=== PATIENT | male | born 1935 | race Caucasian/White ===

== ENCOUNTER 2022-05-23 05:09 | Outpatient (REF) | payer MEDICARE, BC, SELFPAY ==
[2022-05-23 06:31] LABS: Alanine Aminotransferase 6 U/L (0-40); Albumin Level 3.6 g/dL (3.5-5.0); Alkaline Phosphatase 86 U/L (39-117); Anion Gap 15 (12-20); Aspartate Amino Transferase 12 U/L (5-37); Bilirubin Total 0.4 mg/dL (0.0-1.0); Blood Urea Nitrogen 17 mg/dL (9-16); Calcium 9.4 mg/dL (8.4-10.2); Carbon Dioxide 23 mmol/L (22-29); Chloride 107 mmol/L (96-108); Cholesterol 144 mg/dL; Estimated Glomerular Filt Rate > 60; Glucose Fasting 115 mg/dL (60-99); HDL Cholesterol 45 mg/dL; LDL Cholesterol Calculated 86 mg/dl; Potassium 3.9 mmol/L (3.3-5.1); Sodium 141 mmol/L (135-145); Total Protein 6.3 g/dL (6.5-8.0); Triglycerides 68 mg/dL
[2022-05-23 06:36] LABS: Hematocrit 39.2 % (42.0-52.0); Mean Corpuscular HGB Conc 33.2 g/dl (31.0-36.0); Mean Corpuscular Hemoglobin 31.3 pg (27.0-33.0); Mean Corpuscular Volume 94.2 fL (80.0-98.0); Mean Platelet Volume 10.6 fL (9.4-12.4); Platelet Count 164 X10*3/uL (160-400); Red Blood Count 4.16 X10*6/uL (4.60-5.80); Red Cell Distribution Width 12.7 % (11.0-16.0); White Blood Count 6.7 X10*3/uL (4.8-10.8)
[2022-05-23 06:53] LABS: Thyroid Stimulating Hormone 1.14 uIU/mL (0.32-4.0); Vitamin D 25-OH Total 22.1 ng/mL (>30)
[2022-05-23 07:28] LABS: Estimated Average Glucose 117 mg/dL; Hemoglobin A1c % 5.7 %
[2022-05-26 17:11] LABS: TS Negative Control Passed; TS Panel A 0; TS Panel B 0; TS Positive Control Passed; TSpotTB Negative (Negative)
== END 2022-05-23 05:10 | disposition home or self-care (01) ==
LOC: HO.HSH3W 05:09
PROVIDERS: Visit Provider Internal Medicine Interventional Cardiology
DX: Z11.1 Encounter for screening for respiratory tuberculosis (principal); E11.9 Type 2 diabetes mellitus without complications; I10 Essential (primary) hypertension; F03.90 Unspecified dementia, unspecified severity, without behavioral disturbance, psychotic disturbance, mood disturbance, and anxiety
CPT/HCPCS: 36415; 80053; 80061; 82306; 83036; 84443; 85027; 86481

== ENCOUNTER 2023-01-21 06:10 | Outpatient (REF) | payer MEDICARE, BC, SELFPAY ==
[2023-01-21 06:13] LABS: MANUAL DIFF FLAG NO
[2023-01-21 06:31] LABS: Basophils Absolute Auto 0.1 X10*3/uL (0.0-0.2); Basophils Percent Auto 0.8 % (0-2); Eosinophils Absolute Auto 0.3 X10*3/uL (0.0-0.4); Eosinophils Percent Auto 4.6 % (0-4); Hematocrit 39.9 % (42.0-52.0); Hemoglobin 13.3 g/dl (14.0-18.0); Imm Gran Abs Auto 0.04 X10*3/uL (0.00-0.03); Imm Gran Pct Auto 0.6 % (0.0-0.4); Lymphocytes Absolute Auto 2.2 X10*3/uL (1.2-4.9); Lymphocytes Percent Auto 35.1 % (20-40); Mean Corpuscular HGB Conc 33.3 g/dl (31.0-36.0); Mean Corpuscular Hemoglobin 30.8 pg (27.0-33.0); Mean Corpuscular Volume 92.4 fL (80.0-98.0); Mean Platelet Volume 10.6 fL (9.4-12.4); Monocytes Absolute Auto 0.6 X10*3/uL (0.1-1.2); Monocytes Percent Auto 9.3 % (2-11); Neutrophils Absolute Auto 3.1 x10*3/uL (2.0-8.3); Neutrophils Percent Auto 49.6 % (45-73); Platelet Count 151 X10*3/uL (160-400); Red Blood Count 4.32 X10*6/uL (4.60-5.80); Red Cell Distribution Width 13.2 % (11.0-16.0); White Blood Count 6.3 X10*3/uL (4.8-10.8)
[2023-01-21 06:51] LABS: Alanine Aminotransferase 8 U/L (0-40); Albumin Level 3.3 g/dL (3.5-5.0); Alkaline Phosphatase 65 U/L (39-117); Anion Gap 9 (12-20); Aspartate Amino Transferase 13 U/L (5-37); Bilirubin Total 0.8 mg/dL (0.0-1.0); Blood Urea Nitrogen 15 mg/dL (9-16); Calcium 9.2 mg/dL (8.4-10.2); Carbon Dioxide 25 mmol/L (22-29); Chloride 109 mmol/L (96-108); Estimated Glomerular Filt Rate > 60; Glucose Fasting 96 mg/dL (60-99); Potassium 3.8 mmol/L (3.3-5.1); Sodium 139 mmol/L (135-145); Total Protein 5.6 g/dL (6.5-8.0)
== END 2023-01-21 06:11 | disposition home or self-care (01) ==
LOC: HO.HSH3W 06:10
PROVIDERS: Visit Provider Nurse Practitioner
DX: I10 Essential (primary) hypertension (principal); D64.9 Anemia, unspecified
CPT/HCPCS: 36415; 80053; 85025

== ENCOUNTER 2023-06-08 17:40 | Outpatient (REF) | payer MEDICARE, BC, SELFPAY | END 2023-06-08 17:41 | disposition home or self-care (01) | LOC: HO.HSH2W 17:40 | PROVIDERS: Visit Provider Nurse Practitioner | DX: L03.90 Cellulitis, unspecified (principal) | CPT/HCPCS: 87070; 87147; 87205 ==

== ENCOUNTER 2023-09-10 05:38 | Outpatient (REF) | payer MEDICARE, BC, SELFPAY ==
[2023-09-10 06:48] LABS: MANUAL DIFF FLAG NO
[2023-09-10 06:53] LABS: Basophils Absolute Auto 0.1 X10*3/uL (0.0-0.2); Basophils Percent Auto 0.8 % (0-2); Eosinophils Absolute Auto 0.4 X10*3/uL (0.0-0.4); Eosinophils Percent Auto 5.7 % (0-4); Hematocrit 40.2 % (42.0-52.0); Hemoglobin 13.7 g/dl (14.0-18.0); Imm Gran Abs Auto 0.07 X10*3/uL (0.00-0.03); Imm Gran Pct Auto 1.1 % (0.0-0.4); Lymphocytes Percent Auto 29.4 % (20-40); Mean Corpuscular HGB Conc 34.1 g/dl (31.0-36.0); Mean Corpuscular Hemoglobin 31.4 pg (27.0-33.0); Mean Corpuscular Volume 92.2 fL (80.0-98.0); Mean Platelet Volume 10.1 fL (9.4-12.4); Monocytes Absolute Auto 0.6 X10*3/uL (0.1-1.2); Neutrophils Absolute Auto 3.6 x10*3/uL (2.0-8.3); Platelet Count 156 X10*3/uL (160-400); Red Blood Count 4.36 X10*6/uL (4.60-5.80); Red Cell Distribution Width 13.3 % (11.0-16.0); White Blood Count 6.6 X10*3/uL (4.8-10.8)
[2023-09-10 07:19] LABS: Alanine Aminotransferase 8 U/L (0-40); Albumin Level 3.3 g/dL (3.5-5.0); Alkaline Phosphatase 66 U/L (39-117); Anion Gap 12 (12-20); Aspartate Amino Transferase 13 U/L (5-37); Bilirubin Total 0.5 mg/dL (0.0-1.0); Blood Urea Nitrogen 15 mg/dL (9-16); Calcium 9.2 mg/dL (8.4-10.2); Carbon Dioxide 24 mmol/L (22-29); Chloride 108 mmol/L (96-108); Cholesterol 116 mg/dL (<200); Estimated Average Glucose 131 mg/dL; Estimated Glomerular Filt Rate > 60; Glucose Fasting 108 mg/dL (60-99); HDL Cholesterol 37 mg/dL (>40); Hemoglobin A1c % 6.2 % (<6.0); LDL Cholesterol Calculated 67 mg/dL (<100); Potassium 3.8 mmol/L (3.3-5.1); Sodium 140 mmol/L (135-145); Triglycerides 62 mg/dL (<150)
== END 2023-09-10 05:39 | disposition home or self-care (01) ==
LOC: HO.HSH3W 05:38
PROVIDERS: Visit Provider Internal Medicine Interventional Cardiology
DX: E11.9 Type 2 diabetes mellitus without complications (principal); E78.5 Hyperlipidemia, unspecified; Z86.718 Personal history of other venous thrombosis and embolism
CPT/HCPCS: 36415; 80053; 80061; 83036; 85025

== ENCOUNTER 2024-09-13 06:41 | Outpatient (REF) | payer MEDICARE, BC, SELFPAY ==
[2024-09-13 07:44] LABS: Alanine Aminotransferase 9 U/L (0-40); Albumin Level 3.3 g/dL (3.5-5.0); Alkaline Phosphatase 72 U/L (39-117); Anion Gap 13 (12-20); Aspartate Amino Transferase 21 U/L (5-37); Bilirubin Total 0.6 mg/dL (0.0-1.0); Blood Urea Nitrogen 16 mg/dL (9-16); Calcium 8.5 mg/dL (8.4-10.2); Carbon Dioxide 20 mmol/L (22-29); Chloride 110 mmol/L (96-108); Estimated Glomerular Filt Rate > 60; Glucose Random 128 mg/dL (60-115); Potassium 4.1 mmol/L (3.3-5.1); Sodium 139 mmol/L (135-145); Total Protein 6.1 g/dL (6.5-8.0)
== END 2024-09-13 06:42 | disposition home or self-care (01) ==
LOC: HO.HSH3W 06:41
PROVIDERS: Visit Provider Nurse Practitioner
DX: Z20.822 Contact with and (suspected) exposure to COVID-19 (principal)
CPT/HCPCS: 36415; 80053

== ENCOUNTER 2024-09-22 06:24 | Outpatient (REF) | payer MEDICARE, BC, SELFPAY ==
--- OUTSIDE RECORDS SUMMARY | 2024-09-22 06:28 | XMS_ITS | Clinical Summary ---
Author Organization Unknown Care Team Providers Care Tank Driver Name Role Phone BASSAM GALARZA, LUCA Unavailable Unavailable MK RN, ELIZABETH Unavailable Unavailable SPAFFORD OT, RAMIREZ Unavailable Unavailable DEYSI PT, IGNACIO Unavailable Unavailable PEDRO HOOF TRIMMER, FAVIAN Unavailable Unavailable SHUKLA HOOF TRIMMER, CHI Unavailable Unavailable MBURU SHELL MOLD BONDER, AVI Unavailable Unavailable CLOONAN SHELL MOLD BONDER, EDWARD Unavailable Unavailable CONDINO MEGHA/MOCK, TIAGO Unavailable Unav ailable Payers Payer Name Policy Type Policy Number Effective Date Expira tion Date MEDICARE.[facility] [id number] Problems Condition Name Condition Details Condition Category Status Onset Date Resolution Date Last Treatment Date Treating Clinician Comments ALZHEIMER'S DISEASE, UNSPECIFIED Active 03-26 00:00: 00 DEM IN OTH DIS CLASSD ELSWHR,UNSP SEV,W/O BEH/PSYCH/MO OD/ANX Active 03-26 00:00: 00 TYPE 2 DIABETES MELLITUS WITHOUT COMPLICATION S Active 03-26 00:00: 00 ESSENTIAL (PRIMARY) HYPERTENSION Active 03-26 00:00: 00 OTH SYMPTOMS AND SIGNS INVOLVING THE MUSCULOSKELE VIRGILIO SYSTEM Active 03-26 00:00: 00 OTHER ABNORMALITIE S OF GAIT AND MOBILITY Active 03-26 00:00: 00 HYPERLIPIDEM IA, UNSPECIFIED Active 03-26 00:00: 00 PERSONAL HISTORY OF PULMONARY EMBOLISM Active 03-26 00:00: 00 PERSONAL HISTORY OF OTHER VENOUS THROMBOSIS AND EMBOLISM Active 03-26 00:00: 00 [facility] (CURRENT) USE OF ANTICOAGULAN TS Active 03-26 00:00: 00 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 Ordering Clinician Indication Dosage Frequency Signature (SIG) Comments Components metformin 500 mg tablet 2019-09 00:00: 00 09-21 23:59 :00 No [id number] Per instruc tions TWO TIMES A DAY Per instructio ns TWO TIMES A DAY (route: oral) Med Classific ation: Endocrine memantine 5 mg tablet 2019-09 00:00: 00 Yes [id number] DEMENTIA Per instruc tions TWO TIMES A DAY Per instructio ns TWO TIMES A DAY (route: oral) Med Classific ation: Cognitive Disorder Therapy donepezil 5 mg tablet 2019-09 00:00: 00 12-21 23:59 :00 No [id number] 1 tablet DAILY 1 tablet DAILY (route: oral) Med Classific ation: Cognitive Disorder Therapy quetiapine 50 mg tablet 2019-09 00:00: 00 02-06 23:59 :00 No [id number] Per instruc tions TWO TIMES A DAY Per instructio ns TWO TIMES A DAY (route: oral) Med Classific ation: Central Nervous System Agents lisinopril 20 mg-hydrochl orothiazide 12.5 mg tablet 2019-09 00:00: 00 09-21 23:59 :00 No [id number] Per instruc tions TWO TIMES A DAY Per instructio ns TWO TIMES A DAY (route: oral) Med Classific ation: Cardiovas cular Therapy Agents pravastatin 40 mg tablet 2019-09 00:00: 00 04-18 00:00 :00 No [id number] 1 tablet DAILY 1 tablet DAILY (route: oral) Med Classific ation: Cardiovas cular Therapy Agents acetaminoph en 325 mg tablet 04-18 00:00: 00 Yes [id number] PAIN 2 tablet NEEDED 2 tablet NEEDED (route: oral) Med Classific ation: Analgesic , Anti-infl ammatory or Antipyret ic Colace 100 mg capsule 04-18 00:00: 00 Yes [id number] CONSTIPATIO N 1 capsule 2 TIMES DAILY 1 capsule 2 TIMES DAILY (route: oral) Med Classific ation: Gastroint estinal Therapy Agents Eliquis 5 mg tablet 04-18 00:00: 00 Yes [id number] ANTICOAGULA TION 1 tablet 2 TIMES DAILY 1 tablet 2 TIMES DAILY (route: oral) Med Classific ation: Hematolog ical Agents Multivitami n 50 Plus tablet 09-22 00:00: 00 Yes [id number] SUPPLEMENT 1 tablet DAILY 1 tablet DAILY (route: oral) Med Classific ation: Electroly te Balance-N utritiona l Products pantoprazol e 40 mg tablet,rex yed release 09-22 00:00: 00 10-05 23:59 :00 No [id number] 1 tablet DAILY 1 tablet DAILY (route: oral) Med Classific ation: Gastroint estinal Therapy Agents Remeron 15 mg tablet 09-22 00:00: 00 10-05 23:59 :00 No [id number] 7.5 tablet DAILY 7.5 tablet DAILY (route: oral) Med Classific ation: Central Nervous System Agents Senna Concentrate 8.6 mg tablet 04-18 00:00: 00 Yes [id number] CONSTIPATIO N 1 tablet NEEDED 1 tablet NEEDED (route: oral) Med Classific ation: Gastroint estinal Therapy Agents gabapentin 100 mg capsule 04-18 00:00: 00 Yes [id number] PAIN 1 capsule 2 TIMES DAILY 1 capsule 2 TIMES DAILY (route: oral) Med Classific ation: Central Nervous System Agents lisinopril 20 mg-hydrochl orothiazide 12.5 mg tablet 12-23 00:00: 00 04-18 00:00 :00 No [id number] 1 tablet DAILY 1 tablet DAILY (route: oral) Med Classific ation: Cardiovas cular Therapy Agents metformin 500 mg tablet 12-23 00:00: 00 Yes [id number] DIABETES 1 tablet 2 TIMES DAILY 1 tablet 2 TIMES DAILY (route: oral) Med Classific ation: Endocrine pantoprazol e 20 mg tablet,rex yed release 4-10 00:00: 00 Yes [id number] GERD 1 tablet DAILY 1 tablet DAILY (route: oral) Med Classific ation: Gastroint estinal Therapy Agents quetiapine 25 mg tablet 5- 00:00: 00 04-18 23:59 :00 No [id number] TREAT LABILE MOODS Per instruc tions 2 TIMES DAILY Per instructio ns 2 TIMES DAILY (route: oral) Med Classific ation: Central Nervous System Agents donepezil 5 mg tablet 04-18 00:00: 00 Yes [id number] DEMENTIA 1 tablet DAILY 1 tablet DAILY (route: oral) Med Classific ation: Cognitive Disorder Therapy Multivitami n 50 Plus tablet 04-18 00:00: 00 Yes [id number] SUPPLEMENT 1 tablet DAILY 1 tablet DAILY (route: oral) Med Classific ation: Electroly te Balance-N utritiona l Products quetiapine 25 mg tablet 04-18 00:00: 00 Yes [id number] MOOD DISORDER 0.5 tablet NEEDED 0.5 tablet NEEDED (route: oral) Med Classific ation: Central Nervous System Agents quetiapine 50 mg tablet 04-18 00:00: 00 Yes [id number] MOOD DISORDE 1 tablet 2 TIMES DAILY 1 tablet 2 TIMES DAILY (route: oral) Med Classific ation: Central Nervous System Agents cephalexin 500 mg capsule 05-04 00:00: 00 05-11 23:59 :00 No [id number] ANTIBIOTIC 1 capsule 3 TIMES DAILY 1 capsule 3 TIMES DAILY (route: oral) Med Classific ation: Anti-Infe ctive Agents polyethylen e glycol 3350 17 gram oral powder packet 05-08 00:00: 00 Yes [id number] CONSTIPATIO N 17 packet DAILY 17 packet DAILY (route: oral) Med Classific ation: Gastroint estinal Therapy Agents Immunizations Ordered Immunization Name Filled Immunization Name Date Status Comments Refusal Reason DOSE #2, COVID-19 VACCINE 2020-12-10 00:00:00 DOSE #1, COVID-19 VACCINE 2020-11-12 00:00:00 Vital Signs Vital Name Observation Time Observation Value Commen ts Temperature 2021-05-31 11:27:00.000 97 [degF] Temperature 2021-05-30 17:09:46.000 97.7 [degF] Temperature 2021-05-27 16:36:51.000 97.9 [degF] Temperature 2021-05-27 12:38:00.000 98 [degF] Temperature 2021-05-24 15:43:00.000 97.2 [degF] Temperature 2021-05-23 18:22:12.000 97.3 [degF] Temperature 2021-05-23 11:40:00.000 97.6 [degF] Temperature 2021-05-21 17:06:27.000 97.5 [degF] Temperature 2021-05-21 14:32:00.000 97.4 [degF] Temperature 2021-05-17 08:38:00.000 97.2 [degF] Temperature 2021-05-16 15:26:53.000 97.1 [degF] Temperature 2021-05-16 13:55:00.000 97.3 [degF] Temperature 2021-05-14 11:49:00.000 96.9 [degF] Temperature 2021-05-13 17:10:11.000 97.9 [degF] Temperature 2021-05-09 16:44:49.000 97.6 [degF] Temperature 2021-05-08 14:44:00.000 97.8 [degF] Temperature 2021-05-08 12:12:14.000 97.7 [degF] Temperature 2021-05-07 14:31:00.000 97.2 [degF] Temperature 2021-05-06 16:37:23.000 97.5 [degF] Temperature 2021-05-06 12:16:00.000 97.1 [degF] Temperature 2021-05-02 15:24:06.000 97.7 [degF] Temperature 2021-05-01 12:48:00.000 98 [degF] Temperature 2021-04-30 11:13:00.000 97.2 [degF] Temperature 2021-04-30 10:19:20.000 97.5 [degF] Temperature 2021-04-29 10:46:00.000 97.3 [degF] Temperature 2021-04-26 10:18:00.000 97 [degF] Temperature 2021-04-25 16:27:46.000 97.6 [degF] Temperature 2021-04-23 10:15:58.000 97.5 [degF] Temperature 2021-04-22 12:53:00.000 97.7 [degF] Temperature 2021-04-22 12:39:00.000 97.7 [degF] Temperature 2021-04-18 11:08:00.000 97.6 [degF] Height 2021-04-18 11:08:00.000 68 [in_us] Pulse 2021-05-31 11:27:00.000 90 /min Pulse 2021-05-30 17:10:17.000 75 /min Pulse 2021-05-27 16:37:43.000 79 /min Pulse 2021-05-27 12:38:00.000 77 /min Pulse 2021-05-24 15:43:00.000 73 /min Pulse 2021-05-23 18:22:43.000 69 /min Pulse 2021-05-23 11:40:00.000 71 /min Pulse 2021-05-21 17:07:09.000 87 /min Pulse 2021-05-21 14:32:00.000 85 /min Pulse 2021-05-17 08:38:00.000 84 /min Pulse 2021-05-16 15:27:23.000 66 /min Pulse 2021-05-16 13:55:00.000 92 /min Pulse 2021-05-14 11:49:00.000 64 /min Pulse 2021-05-13 17:10:38.000 67 /min Pulse 2021-05-09 16:45:26.000 70 /min Pulse 2021-05-08 14:44:00.000 68 /min Pulse 2021-05-08 12:12:22.000 80 /min Pulse 2021-05-07 14:31:00.000 85 /min Pulse 2021-05-06 16:37:52.000 87 /min Pulse 2021-05-06 12:16:00.000 98 /min Pulse 2021-05-02 15:24:37.000 85 /min Pulse 2021-05-01 12:48:00.000 82 /min Pulse 2021-04-30 11:13:00.000 80 /min Pulse 2021-04-30 10:20:00.000 63 /min Pulse 2021-04-29 10:46:00.000 67 /min Pulse 2021-04-26 10:18:00.000 68 /min Pulse 2021-04-25 16:28:20.000 85 /min Pulse 2021-04-23 10:16:31.000 89 /min Pulse 2021-04-22 12:53:00.000 86 /min Pulse 2021-04-22 12:39:00.000 86 /min Pulse 2021-04-18 11:08:00.000 76 /min O2 Saturation (%) 2021-05-31 11:27:00.000 94 % O2 Saturation (%) 2021-05-27 12:38:00.000 97 % O2 Saturation (%) 2021-05-24 15:43:00.000 93 % O2 Saturation (%) 2021-05-23 11:40:00.000 92 % O2 Saturation (%) 2021-05-21 14:32:00.000 97 % O2 Saturation (%) 2021-05-17 08:38:00.000 97 % O2 Saturation (%) 2021-05-14 11:49:00.000 97 % O2 Saturation (%) 2021-05-08 14:50:00.000 98 % O2 Saturation (%) 2021-05-06 12:16:00.000 96 % O2 Saturation (%) 2021-05-01 12:48:00.000 95 % O2 Saturation (%) 2021-04-29 10:46:00.000 95 % O2 Saturation (%) 2021-04-26 10:18:00.000 96 % O2 Saturation (%) 2021-04-22 12:39:00.000 95 % O2 Saturation (%) 2021-04-18 11:08:00.000 96 % Respirations 2021-05-31 11:27:00.000 18 /min Respirations 2021-05-30 17:10:05.000 18 /min Respirations 2021-05-27 16:37:21.000 18 /min Respirations 2021-05-27 12:38:00.000 18 /min Respirations 2021-05-24 15:43:00.000 18 /min Respirations 2021-05-23 18:22:34.000 18 /min Respirations 2021-05-23 11:40:00.000 18 /min Respirations 2021-05-21 17:06:59.000 18 /min Respirations 2021-05-21 14:32:00.000 18 /min Respirations 2021-05-17 08:38:00.000 18 /min Respirations 2021-05-16 15:27:15.000 18 /min Respirations 2021-05-16 13:55:00.000 18 /min Respirations 2021-05-14 11:49:00.000 18 /min Respirations 2021-05-13 17:10:30.000 18 /min Respirations 2021-05-09 16:45:13.000 18 /min Respirations 2021-05-08 14:44:00.000 18 /min Respirations 2021-05-08 12:12:28.000 18 /min Respirations 2021-05-07 14:31:00.000 18 /min Respirations 2021-05-06 16:37:43.000 18 /min Respirations 2021-05-06 12:16:00.000 18 /min Respirations 2021-05-02 15:24:28.000 18 /min Respirations 2021-05-01 12:48:00.000 18 /min Respirations 2021-04-30 11:13:00.000 18 /min Respirations 2021-04-30 10:19:50.000 16 /min Respirations 2021-04-29 10:46:00.000 16 /min Respirations 2021-04-26 10:18:00.000 18 /min Respirations 2021-04-25 16:28:12.000 18 /min Respirations 2021-04-23 10:16:21.000 18 /min Respirations 2021-04-22 12:53:00.000 18 /min Respirations 2021-04-22 12:39:00.000 18 /min Respirations 2021-04-18 11:08:00.000 18 /min Weight (lbs) 2021-05-08 14:44:00.000 213 [lb_av] Systolic Blood Pressure 2021-05-31 11:27:00.000 134 mm [Hg] Systolic Blood Pressure 2021-05-30 17:10:00.000 131 mm [Hg] Systolic Blood Pressure 2021-05-27 16:37:09.000 137 mm [Hg] Systolic Blood Pressure 2021-05-27 12:38:00.000 140 mm [Hg] Systolic Blood Pressure 2021-05-24 15:43:00.000 128 mm [Hg] Systolic Blood Pressure 2021-05-23 18:22:27.000 126 mm [Hg] Systolic Blood Pressure 2021-05-23 11:40:00.000 122 mm [Hg] Systolic Blood Pressure 2021-05-21 17:06:54.000 139 mm [Hg] Systolic Blood Pressure 2021-05-21 14:32:00.000 150 mm [Hg] Systolic Blood Pressure 2021-05-17 08:38:00.000 142 mm [Hg] Systolic Blood Pressure 2021-05-16 15:27:08.000 119 mm [Hg] Systolic Blood Pressure 2021-05-16 13:55:00.000 142 mm [Hg] Systolic Blood Pressure 2021-05-14 11:49:00.000 110 mm [Hg] Systolic Blood Pressure 2021-05-13 17:10:26.000 131 mm [Hg] Systolic Blood Pressure 2021-05-09 16:45:07.000 137 mm [Hg] Systolic Blood Pressure 2021-05-08 14:44:00.000 140 mm [Hg] Systolic Blood Pressure 2021-05-08 12:12:38.000 160 mm [Hg] Systolic Blood Pressure 2021-05-07 14:31:00.000 140 mm [Hg] Systolic Blood Pressure 2021-05-06 16:37:38.000 137 mm [Hg] Systolic Blood Pressure 2021-05-06 12:16:00.000 150 mm [Hg] Systolic Blood Pressure 2021-05-02 15:24:22.000 143 mm [Hg] Systolic Blood Pressure 2021-05-01 12:48:00.000 150 mm [Hg] Systolic Blood Pressure 2021-04-30 11:13:00.000 120 mm [Hg] Systolic Blood Pressure 2021-04-30 10:19:42.000 126 mm [Hg] Systolic Blood Pressure 2021-04-29 10:46:00.000 130 mm [Hg] Systolic Blood Pressure 2021-04-26 10:18:00.000 134 mm [Hg] Systolic Blood Pressure 2021-04-25 16:28:06.000 137 mm [Hg] Systolic Blood Pressure 2021-04-23 10:16:16.000 141 mm [Hg] Systolic Blood Pressure 2021-04-22 12:53:00.000 140 mm [Hg] Systolic Blood Pressure 2021-04-22 12:39:00.000 140 mm [Hg] Systolic Blood Pressure 2021-04-18 11:08:00.000 140 mm [Hg] Diastolic Blood Pressure 2021-05-31 11:27:00.000 80 mm [Hg] Diastolic Blood Pressure 2021-05-30 17:10:00.000 69 mm [Hg] Diastolic Blood Pressure 2021-05-27 16:37:09.000 71 mm [Hg] Diastolic Blood Pressure 2021-05-27 12:38:00.000 70 mm [Hg] Diastolic Blood Pressure 2021-05-24 15:43:00.000 84 mm [Hg] Diastolic Blood Pressure 2021-05-23 18:22:27.000 77 mm [Hg] Diastolic Blood Pressure 2021-05-23 11:40:00.000 80 mm [Hg] Diastolic Blood Pressure 2021-05-21 17:06:54.000 73 mm [Hg] Diastolic Blood Pressure 2021-05-21 14:32:00.000 70 mm [Hg] Diastolic Blood Pressure 2021-05-17 08:38:00.000 70 mm [Hg] Diastolic Blood Pressure 2021-05-16 15:27:08.000 61 mm [Hg] Diastolic Blood Pressure 2021-05-16 13:55:00.000 78 mm [Hg] Diastolic Blood Pressure 2021-05-14 11:49:00.000 60 mm [Hg] Diastolic Blood Pressure 2021-05-13 17:10:26.000 75 mm [Hg] Diastolic Blood Pressure 2021-05-09 16:45:07.000 76 mm [Hg] Diastolic Blood Pressure 2021-05-08 14:44:00.000 74 mm [Hg] Diastolic Blood Pressure 2021-05-08 12:12:38.000 88 mm [Hg] Diastolic Blood Pressure 2021-05-07 14:31:00.000 68 mm [Hg] Diastolic Blood Pressure 2021-05-06 16:37:38.000 67 mm [Hg] Diastolic Blood Pressure 2021-05-06 12:16:00.000 76 mm [Hg] Diastolic Blood Pressure 2021-05-02 15:24:22.000 71 mm [Hg] Diastolic Blood Pressure 2021-05-01 12:48:00.000 70 mm [Hg] Diastolic Blood Pressure 2021-04-30 11:13:00.000 66 mm [Hg] Diastolic Blood Pressure 2021-04-30 10:19:42.000 61 mm [Hg] Diastolic Blood Pressure 2021-04-29 10:46:00.000 60 mm [Hg] Diastolic Blood Pressure 2021-04-26 10:18:00.000 72 mm [Hg] Diastolic Blood Pressure 2021-04-25 16:28:06.000 70 mm [Hg] Diastolic Blood Pressure 2021-04-23 10:16:16.000 69 mm [Hg] Diastolic Blood Pressure 2021-04-22 12:53:00.000 72 mm [Hg] Diastolic Blood Pressure 2021-04-22 12:39:00.000 72 mm [Hg] Diastolic Blood Pressure 2021-04-18 11:08:00.000 70 mm [Hg] Plan of Treatment Planned Activity Planned Date Details Comments Future Scheduled Test SKILLED NU RSE TO ASSESS, EVALUATE, AND DEVELOP AN INDIVIDUALIZED PLAN OF CARE. AGENCY MAY ACCEPT ORDERS FROM CONSULTING PHYSICIANS DR BASSAM KC TO OBSERVE/ASSESS RISK FOR FALLS AND INSTRUCT IN FALL PREVENTION, HOME SAFETY, MEDICATION MANAGEMENT, INFECTION PREVENTION, AND NUTRITION MANAGEMENT. SN MAY PERFORM O2 SATURATION LEVEL ON ADMISSION AND PRN FOR RESP CHANGES TO ASSESS PATIENT, WITH NOTIFICATION TO THE PHYSICIAN IF SATURATION IS 90% IN THE ABSENCE OF MORE SPECIFIC PARAMETERS FROM THE PHYSICIAN. AGENCY MAY PERFORM A RESUMPTION OF CARE VISIT FOLLOWING ANY HOSPITAL ADMISSION. SKILLED NURSE TO ASSESS/EVALUATE CO-MORBID CONDITIONS AND ANY NEW CONDITIONS THAT PRESENT THEMSELVES DURING THIS EPISODE TO IDENTIFY CHANGES AND INTERVENE TO MINIMIZE COMPLICATIONS. [code = SKILLED NURSE TO ASSESS, EVALUATE, AND DEVELOP AN INDIVIDUALIZED PLAN OF CARE. AGENCY MAY ACCEPT ORDERS FROM CONSULTING PHYSICIANS DR BASSAM KC TO OBSERVE/ASSESS RISK FOR FALLS AND INSTRUCT IN FALL PREVENTION, HOME SAFETY, MEDICATION MANAGEMENT, INFECTION PREVENTION, AND NUTRITION MANAGEMENT. SN MAY PERFORM O2 SATURATION LEVEL ON ADMISSION AND PRN FOR RESP CHANGES TO ASSESS PATIENT, WITH NOTIFICATION TO THE PHYSICIAN IF SATURATION IS 90% IN THE ABSENCE OF MORE SPECIFIC PARAMETERS FROM THE PHYSICIAN. AGENCY MAY PERFORM A RESUMPTION OF CARE VISIT FOLLOWING ANY HOSPITAL ADMISSION. SKILLED NURSE TO ASSESS/EVALUATE CO-MORBID CONDITIONS AND ANY NEW CONDITIONS THAT PRESENT THEMSELVES DURING THIS EPISODE TO IDENTIFY CHANGES AND INTERVENE TO MINIMIZE COMPLICATIONS.] Future Scheduled Test MEDICATION MANAGEMENT; SKILLED NURSE TO REVIEW MEDICATIONS FOR INTERACTIONS, EFFECTIVENESS OF DRUG THERAPY, AND SIGNS/SYMPTOMS OF ADVERSE REACTIONS. MAY INSTRUCT AND REINFORCE MEDICATION TEACHING RELATED TO THE USE OF MEDICATIONS, DOSAGE, FREQUENCY, PURPOSE, SIDE EFFECTS, AND TO REPORT COMPLICATIONS. [code = MEDICATION MANAGEMENT; SKILLED NURSE TO REVIEW MEDICATIONS FOR INTERACTIONS, EFFECTIVENESS OF DRUG THERAPY, AND SIGNS/SYMPTOMS OF ADVERSE REACTIONS. MAY INSTRUCT AND REINFORCE MEDICATION TEACHING RELATED TO THE USE OF MEDICATIONS, DOSAGE, FREQUENCY, PURPOSE, SIDE EFFECTS, AND TO REPORT COMPLICATIONS. ] Future Scheduled Test RISK FOR H OSPITALIZATION; SKILLED NURSE TO INSTRUCT PATIENT/CAREGIVER ON RISK FOR HOSPITALIZATION, TEACH SIGNS AND SYMPTOMS THAT PUT PATIENT AT RISK, WHEN TO NOTIFY NURSE OF COMPLICATIONS/DECLINE, AND WHEN TO CALL 911. SKILLED NURSE TO INSTRUCT PATIENT/CAREGIVER ON: SIGNS AND SYMPTOMS TO BE ON ALERT FOR EARLY INTERVENTION, PRIOR TO NEEDING EMERGENCY SERVICES CALL [facility] NURSE TO KEEP VMWARE ENGINEER SYMPTOM REPORT FOR VISIBLE REFERENCE NOTIFY SKILLED NURSE/PHYSICIAN FOR DECLINE IN STATS WHEN AND HOW TO CALL HOME HEALTH AGENCY FACILITATE PHYSICIAN FOLLOW UP APPOINTMENT IDENTIFY SOCIOECONOMIC CONCERNS AND MAKE APPROPRIATE REFERRAL NEEDED [code = RISK FOR HOSPITALIZATION; SKILLED NURSE TO INSTRUCT PATIENT/CAREGIVER ON RISK FOR HOSPITALIZATION, TEACH SIGNS AND SYMPTOMS THAT PUT PATIENT AT RISK, WHEN TO NOTIFY NURSE OF COMPLICATIONS/DECLINE, AND WHEN TO CALL 911. SKILLED NURSE TO INSTRUCT PATIENT/CAREGIVER ON: SIGNS AND SYMPTOMS TO BE ON ALERT FOR EARLY INTERVENTION, PRIOR TO NEEDING EMERGENCY SERVICES CALL [facility] NURSE TO KEEP [employer] ENGINEER SYMPTOM REPORT FOR VISIBLE REFERENCE NOTIFY SKILLED NURSE/PHYSICIAN FOR DECLINE IN STATS WHEN AND HOW TO CALL HOME HEALTH AGENCY FACILITATE PHYSICIAN FOLLOW UP APPOINTMENT IDENTIFY SOCIOECONOMIC CONCERNS AND MAKE APPROPRIATE REFERRAL NEEDED] Future Scheduled Test DIABETES M ANAGEMENT; SKILLED NURSE FOR INSTRUCTIONS OF DIABETIC CARE TO INCLUDE: DIET LOW CARB SKIN CARE, SIGNS AND SYMPTOMS OF HYPO/HYPERGLYCEMIA, PROPER ADMINISTRATION OF DIABETIC MEDICATION. SKILLED NURSE TO INSTRUCT ON DIABETIC FOOT CARE AND MONITOR FOR SKIN LESIONS ON LOWER EXTREMITIES. SKILLED NURSE TO ASSESS PATIENT/CAREGIVER ABILITY TO PERFORM AND RECORD BLOOD GLUCOSE TESTING ORDERED AND TO REPORT ABNORMAL FINDINGS TO PHYSICIAN. SKILLED NURSE MAY PERFORM BLOOD GLUCOSE TEST NEEDED. SKILLED NURSE TO INSTRUCT PATIENT ON IMPORTANCE OF HGBA1C MONITORING, KIDNEY FUNCTION TEST, EYE AND FOOT EXAMS. [code = DIABETES MANAGEMENT; SKILLED NURSE FOR INSTRUCTIONS OF DIABETIC CARE TO INCLUDE: DIET LOW CARB SKIN CARE, SIGNS AND SYMPTOMS OF HYPO/HYPERGLYCEMIA, PROPER ADMINISTRATION OF DIABETIC MEDICATION. SKILLED NURSE TO INSTRUCT ON DIABETIC FOOT CARE AND MONITOR FOR SKIN LESIONS ON LOWER EXTREMITIES. SKILLED NURSE TO ASSESS PATIENT/CAREGIVER ABILITY TO PERFORM AND RECORD BLOOD GLUCOSE TESTING ORDERED AND TO REPORT ABNORMAL FINDINGS TO PHYSICIAN. SKILLED NURSE MAY PERFORM BLOOD GLUCOSE TEST NEEDED. SKILLED NURSE TO INSTRUCT PATIENT ON IMPORTANCE OF HGBA1C MONITORING, KIDNEY FUNCTION TEST, EYE AND FOOT EXAMS.] Future Scheduled Test DEMENTIA M ANAGEMENT WITHOUT BEHAVIORAL DISTURBANCES; SKILLED NURSE TO OBSERVE, ASSESS AND TO PROVIDE EDUCATION ON DEMENTIA WITHOUT BEHAVIORAL DISTURBANCES. [code = DEMENTIA MANAGEMENT WITHOUT BEHAVIORAL DISTURBANCES; SKILLED NURSE TO OBSERVE, ASSESS AND TO PROVIDE EDUCATION ON DEMENTIA WITHOUT BEHAVIORAL DISTURBANCES.] Future Scheduled Test FALL REDUC TION MANAGEMENT; NURSING TO PROVIDE SKILLED ASSESSMENT, EDUCATION, AND INTERVENTION TO IDENTIFY FALL RISK FACTORS SUCH MEDICATIONS THAT MAY CAUSE DIZZINESS, CHRONIC DISEASES, PSYCHOLOGICAL FACTORS, AND EMPOWER/EDUCATE PATIENT/CAREGIVER TO MINIMIZE FALL RISK. [code = FALL REDUCTION MANAGEMENT; NURSING TO PROVIDE SKILLED ASSESSMENT, EDUCATION, AND INTERVENTION TO IDENTIFY FALL RISK FACTORS SUCH MEDICATIONS THAT MAY CAUSE DIZZINESS, CHRONIC DISEASES, PSYCHOLOGICAL FACTORS, AND EMPOWER/EDUCATE PATIENT/CAREGIVER TO MINIMIZE FALL RISK.] Future Scheduled Test PAIN MANAG EMENT; SKILLED NURSE TO OBSERVE, ASSESS, AND PROVIDE EDUCATION ON PAIN MANAGEMENT TECHNIQUES. [code = PAIN MANAGEMENT; SKILLED NURSE TO OBSERVE, ASSESS, AND PROVIDE EDUCATION ON PAIN MANAGEMENT TECHNIQUES. ] Future Scheduled Test HOME HEALT H AIDE SERVICE FOR ASSISTANCE WITH PERSONAL CARE, HYGIENE AND ACTIVITIES OF DAILY LIVING. [code = HOME HEALTH AIDE SERVICE FOR ASSISTANCE WITH PERSONAL CARE, HYGIENE AND ACTIVITIES OF DAILY LIVING.] Future Scheduled Test AGENCY MAY PERFORM A RESUMPTION OF CARE VISIT FOLLOWING ANY HOSPITAL ADMISSION. PHYSICAL THERAPY TO EVALUATE, ASSESS AND MONITOR, PROVIDE SKILLED THERAPEUTIC INTERVENTION, ACTIVITY, EDUCATION, AND TRAINING TO ADDRESS: TRANSFER TRAINING (PT) GAIT TRAINING (PT) NEUROMUSCULAR RE-EDUCATION / BALANCE RETRAINING (PT) THERAPEUTIC EXERCISES (PT) DIABETES MANAGEMENT (PT) IDENTIFY FALL RISK FACTORS AND ESTABLISH HOME EXERCISE PROGRAM TO MINIMIZE FALL RISK (PT) [code = AGENCY MAY PERFORM A RESUMPTION OF CARE VISIT FOLLOWING ANY HOSPITAL ADMISSION. PHYSICAL THERAPY TO EVALUATE, ASSESS AND MONITOR, PROVIDE SKILLED THERAPEUTIC INTERVENTION, ACTIVITY, EDUCATION, AND TRAINING TO ADDRESS: TRANSFER TRAINING (PT) GAIT TRAINING (PT) NEUROMUSCULAR RE-EDUCATION / BALANCE RETRAINING (PT) THERAPEUTIC EXERCISES (PT) DIABETES MANAGEMENT (PT) IDENTIFY FALL RISK FACTORS AND ESTABLISH HOME EXERCISE PROGRAM TO MINIMIZE FALL RISK (PT)] Goal 2021-06-16 Patient Goal - UNABLE TO STA TE Goal Provider Goal - A PLAN OF CARE WILL BE ESTABLISHED THAT MEETS THE PATIENTS NEEDS. PATIENT WILL DEMONSTRATE OXYGEN SATURATION WITHIN NORMAL LIMITS OR PATIENTS OPTIMAL LEVEL ESTABLISHED BY THE PHYSICIAN THROUGHOUT CARE. CHANGES TO CO-MORBID CONDITIONS AND ANY NEW CONDITIONS WILL BE IDENTIFIED AND REPORTED TO THE PHYSICIAN. Goal Provider Goal - PATIENT/CAREGIVER TO VERBALIZE, AND CONSISTENTLY DEMONSTRATE EFFECTIVE, SAFE MANAGEMENT OF MEDICATION INCLUDING KNOWLEDGE OF EFFECTIVENESS, POTENTIAL SIDE EFFECTS AND DRUG REACTIONS AND WHEN TO CONTACT THE APPROPRIATE CARE PROVIDER. PATIENT/CAREGIVER WILL BE ABLE TO VERBALIZE UNDERSTANDING OF MEDICATION REGIMEN AND ACCURATELY TAKE MEDICATIONS PRESCRIBED WITHOUT ADVERSE EFFECTS BY DISCHARGE Goal Provider Goal - PATIENT/CAREGIVER WILL VERBALIZE UNDERSTANDING OF SIGNS AND SYMPTOMS THAT PUT THE PATIENT AT RISK FOR HOSPITALIZATION, WHEN TO NOTIFY SN OF COMPLICATIONS/DECLINE AND WHEN TO CALL 911. Goal Provider Goal - PATIENT / CAREGIVER WILL VERBALIZE / DEMONSTRATE AN ABILITY TO ADHERE TO SELF-MANAGEMENT OF DIABETES MANAGEMENT BY 06/16 Goal Provider Goal - FAMILY / CAREGIVERS WILL VERBALIZE/DEMONSTRATE DEMENTIA MANAGEMENT TECHNIQUES BY END OF EPISODE. Goal Provider Goal - PATIENT/CAREGIVER ABLE TO IDENTIFY FALL RISK FACTORS AND IMPLEMENT STRATEGIES TO MINIMIZE FALL RISK. PATIENT/CAREGIVER WILL VERBALIZE/DEMONSTRATE AN ABILITY TO ADHERE TO FALL REDUCTION SELF MANAGEMENT AND LIFE-STYLE CHANGES AT DISCHARGE. PERSONAL GOAL(S) STATED BY PATIENT/CAREGIVER WILL BE MET BY 06/16 Goal Provider Goal - INCREASED PAIN OR INEFFECTIVE PAIN CONTROL MEASURES WILL BE IDENTIFIED AND PROMPTLY REPORTED TO PHYSICIAN Goal Provider Goal - PATIENT WILL RECEIVE ASSISTANCE WITH PERSONAL CARE AND HYGIENE AND OTHER ACTIVITIES OF DAILY LIVING NEEDED. Goal Provider Goal - Goal Provider Goal - PT STG: PATIENT WILL DEMONSTRATE IMPROVED TRANSFERS FROM SBA TO INDEPENDENT WITH UE ASSIST AND ROLLATOR WITHIN 4 WEEKS PT STG: PATIENT WILL DEMONSTRATE IMPROVED POSITIONING WITHIN ROLLATOR BASE AND IMPROVED FOOT CLEARANCE BILATERALLY TO IMPROVE GAIT PATTERN WITHIN 4 WEEKS PT LTG: PATIENT WILL DEMONSTRATE IMPROVED AMBULATION FROM MIN ASSIST TO SUP WITH ROLLATOR WITHIN 8 WEEKS PT LTG: PATIENT WILL DEMONSTRATE IMPROVED SAFETY NEGOTIATING STEP FROM MIN ASSIST TO SBA WITH ROLLATOR WITHIN 8 WEEKS PT STG: PATIENT WILL DEMONSTRATE ABILITY TO STAND UNSUPPORTED WITH BILATERAL UE MOVEMENT X 2 MINUTES WITHOUT LOB WITHIN 4 WEEKS PT LTG: PATIENT WILL DEMONSTRATE REDUCED FALL RISK EVIDENCED BY ABILITY TO STAND UNSUPPORTED WITH WEIGHT SHIFTING IN ALL DIRECTIONS WITHOUT LOB WITHIN 6 WEEKS PT STG: PATIENT/CAREGIVER WILL DEMONSTRATE INDEPENDENCE WITH LOWER EXTREMITY HOME EXERCISE PROGRAM WITHIN 4 WEEKS PT LTG: PATIENT WILL DEMONSTRATE INCREASED STRENGTH OF BILATERAL LES FROM 4-/5 TO 4+/5 WITHIN 8 WEEKS IN ORDER TO IMPROVE SAFETY AND STABILITY WITH GAIT AND TRANSFERS PATIENTS BLOOD SUGAR WILL REMAIN WELL CONTROLLED THROUGHOUT EPISODE OF CARE AND PATIENT WILL NOT HAVE ANY SIGNS OF SKIN BREAKDOWN OR COMPLICATIONS. PATIENT/CAREGIVER WILL DEMONSTRATE ADHERENCE TO FALL REDUCTION SELF MANAGEMENT TO MINIMIZE FALL RISK BY DISCHARGE. Reason for Visit MAXIMUM ASSIST WITH TRANSFER/AMBULATION/ADLS Encounters Start Date/Time End Date/Time Encounter Type Admission Type Attending [facility] Care Facility Care Department Encounter ID Discharge Date Discharge Status Discharge Condition Discharge Reason Percent Goals Met 2021-04-18 00:00:00 2021-06-16 00:00:00 Outpatient [facility] [id number] 2021-06-16 00:00:00 DISCHARGED /TRANSFERR ED TO A [facility] FOR INPATIENT CARE MAXIMUM ASSIST WITH TRANSFER/A MBULATION/ ADLS HH ONLY - TRANSFER TO HOSPITAL 44.12
[2024-09-22 07:01] LABS: Estimated Average Glucose 154 mg/dL; Hemoglobin A1C 200.2385 umol/L
[2024-09-22 07:23] LABS: Alanine Aminotransferase 13 U/L (0-40); Albumin Level 3.4 g/dL (3.5-5.0); Alkaline Phosphatase 68 U/L (39-117); Anion Gap 13 (12-20); Aspartate Amino Transferase 27 U/L (5-37); Blood Urea Nitrogen 19 mg/dL (9-16); Calcium 8.5 mg/dL (8.4-10.2); Carbon Dioxide 20 mmol/L (22-29); Chloride 110 mmol/L (96-108); Estimated Glomerular Filt Rate > 60; Glucose Random 138 mg/dL (60-115); Potassium 4.1 mmol/L (3.3-5.1); Sodium 139 mmol/L (135-145); Total Protein 6.2 g/dL (6.5-8.0)
[2024-09-22 07:32] LABS: Bilirubin Total 0.5 mg/dL (0.0-1.0)
== END 2024-09-22 06:25 | disposition home or self-care (01) ==
LOC: HO.HSH3W 06:24
PROVIDERS: Visit Provider Nurse Practitioner
DX: Z13.89 Encounter for screening for other disorder (principal)
CPT/HCPCS: 36415; 80053; 83036

== ENCOUNTER 2024-11-05 15:45 | Outpatient (REF) | payer MEDICARE, BC, SELFPAY ==
[2024-11-05 15:48] LABS: MANUAL DIFF FLAG NO
[2024-11-05 15:56] LABS: Basophils Absolute Auto 0.1 X10*3/uL (0.0-0.2); Basophils Percent Auto 0.5 % (0-2); Eosinophils Absolute Auto 0.3 X10*3/uL (0.0-0.4); Eosinophils Percent Auto 2.4 % (0-4); Hematocrit 43.3 % (42.0-52.0); Hemoglobin 14.6 g/dl (14.0-18.0); Imm Gran Abs Auto 0.08 X10*3/uL (0.00-0.03); Imm Gran Pct Auto 0.7 % (0.0-0.4); Lymphocytes Percent Auto 18.2 % (20-40); Mean Corpuscular HGB Conc 33.7 g/dl (31.0-36.0); Mean Corpuscular Hemoglobin 31.7 pg (27.0-33.0); Mean Corpuscular Volume 94.1 fL (80.0-98.0); Mean Platelet Volume 10.6 fL (9.4-12.4); Monocytes Absolute Auto 0.9 X10*3/uL (0.1-1.2); Monocytes Percent Auto 8.5 % (2-11); Neutrophils Absolute Auto 7.7 x10*3/uL (2.0-8.3); Neutrophils Percent Auto 69.7 % (45-73); Platelet Count 163 X10*3/uL (160-400); Red Cell Distribution Width 13.2 % (11.0-16.0); White Blood Count 11.1 X10*3/uL (4.8-10.8)
== END 2024-11-05 15:46 | disposition home or self-care (01) ==
LOC: HO.HSH3W 15:45
PROVIDERS: Visit Provider Internal Medicine Interventional Cardiology
DX: R05.9 Cough, unspecified (principal); R50.9 Fever, unspecified
CPT/HCPCS: 36415; 85025

== ENCOUNTER 2024-11-06 08:53 | Outpatient (REF) | payer MEDICARE, BC, SELFPAY ==
--- OUTSIDE RECORDS SUMMARY | 2024-11-06 08:56 | XMS_ITS | Clinical Summary ---
Author Organization [facility] Address [address] [facility] [address] [place] [address] Care Team Providers Care Maintenance Dispatcher Name Role Phone Unavailable Primary Care Provider Unavailabl e Allergies No known active allergies Medications Eliquis 5 MG tablet 05/16/2022 Active donepezil (Aricept) 10 MG tablet 05/16/2022 Active gabapentin (Neurontin) 100 MG capsule 05/16/2022 Active lisinopril 5 MG tablet 05/16/2022 Active memantine (Namenda) 5 MG tablet 05/16/2022 Active metFORMIN (Glucophage) 500 MG tablet 05/16/2022 Active pravastatin (Pravachol) 40 MG tablet 05/16/2022 Active QUEtiapine (SEROquel) 25 MG tablet 05/16/2022 Active traZODone (Desyrel) 50 MG tablet 05/16/2022 Active senna-docusate sodium (Senokot-S) 8.6-50 MG tablet Take 1 tablet by mouth in the morning. Active magnesium 30 MG tablet Take 30 mg by mouth 2 times daily. Active acetaminophen (Tylenol) 325 MG tablet Take by mouth. Active Social History Tobacco Use Types Packs/Day Years Used Date Smoking Tobacco: Unknown Tobacco Cessation:Counseling Given: Not Answered Alcohol Use Standard Drinks/Week Comments Defer 0 (1 standard drink = 0.6 oz pur e alcohol) Sex and Gender Information Value Date Recorded Sex Assigned at Male 08/27/2022 8:53 AM EST Legal Sex Male 11:03 AM EST Gender Identity Male 08/27/2022 8:53 AM EST Sexual Orientation Straight 08/27/2022 8: 53 AM EST Plan of Treatment Health Maintenance Due Date Last Done Comments Anal Pap 1936 Dental Prophylaxis 1936 Dental X-Ray: Bitewings 1936 Dental X-Ray: Full Mouth 1936 Depression Screening 1936 Lipid Panel 1936 SDOH Screening 1936 Alcohol/Substance Use Screening 1948 DTaP/Tdap/Td Vaccines (1 - Tdap) 11/29/1955 Hepatitis A Vaccines (1 of 2 - Risk 2-dose series) 11/29/1955 Pneumococcal Vaccine: 50+ Years (1 of 1 - PCV) 1986 Zoster Vaccines (1 of 2) 1986 Hepatitis B Vaccines (1 of 3 - Risk 3-dose series) 1996 RSV Patients and Patients Aged 60 years or older (1 - 1-dose 75+ series) 11/29/2011 Dental Oral Exam 02/26/2024 08/26/2023 COVID-19 Vaccine (3 - 2023-2 5 season) 2024 11/12/2020, 10/22/2020 Influenza Vaccine (#1) 2024 06/14/2020 Tobacco Screening 08/26/2024 08/26/2023 HIB Vaccines Aged Out No longer eligi ble based on patient's age to complete this topic HPV Vaccines Aged Out No longer eligi ble based on patient's age to complete this topic IPV Vaccines Aged Out No longer eligi ble based on patient's age to complete this topic Meningococcal Vaccine Aged Out No di alis eligible based on patient's age to complete this topic RSV under 20 months Aged Out No longe r eligible based on patient's age to complete this topic Rotavirus Vaccines Aged Out No longer eligible based on patient's age to complete this topic Procedures Procedure Name Priority Date/Time Associated Diagnosis Comments PERIODIC ORAL EVALUATION - ESTABLISHED PATIENT Routine 08/26/2023 11:00 AM EST from Last 3 Months or Most Recently Relevant to Health Maintenance
[2024-11-06 09:50] LABS: Adenovirus PCR Not Detected (Not Detect.); Bordetella parapertussis PCR Not Detected (Not Detect.); Bordetella pertussis PCR Not Detected (Not Detect.); Chlamydia pneumoniae PCR Not Detected (Not Detect.); Coronavirus 229E PCR Not Detected (Not Detect.); Coronavirus HKU1 PCR Not Detected (Not Detect.); Coronavirus NL63 PCR Not Detected (Not Detect.); Coronavirus OC43 PCR Not Detected (Not Detect.); Human metapneumovirus PCR Not Detected (Not Detect.); Influenza A PCR Not Detected (Not Detect.); Influenza B PCR Not Detected (Not Detect.); Mycoplasma pneumoniae PCR Not Detected (Not Detect.); Parainfluenza 1 PCR Not Detected (Not Detect.); Parainfluenza 2 PCR Not Detected (Not Detect.); Parainfluenza 3 PCR Not Detected (Not Detect.); Parainfluenza 4 PCR Not Detected (Not Detect.); RSV PCR Not Detected (Not Detect.); Rhino/Enterovirus PCR Not Detected (Not Detect.)
[2024-11-06 09:54] LABS: SARS-CoV-2 PCR Not Detected (Not Detect.)
== END 2024-11-06 08:54 | disposition home or self-care (01) ==
LOC: HO.HSH3W 08:53
PROVIDERS: Visit Provider Internal Medicine Interventional Cardiology
DX: R50.9 Fever, unspecified (principal); R05.9 Cough, unspecified
CPT/HCPCS: 87633

== ENCOUNTER 2024-11-17 08:38 | Outpatient (REF) | payer MEDICARE, BC, SELFPAY ==
[2024-11-17 08:43] LABS: MANUAL DIFF FLAG NO
[2024-11-17 08:53] LABS: Basophils Absolute Auto 0.1 X10*3/uL (0.0-0.2); Basophils Percent Auto 0.8 % (0-2); Eosinophils Absolute Auto 0.6 X10*3/uL (0.0-0.4); Eosinophils Percent Auto 9.1 % (0-4); Hematocrit 41.4 % (42.0-52.0); Hemoglobin 13.6 g/dl (14.0-18.0); Imm Gran Abs Auto 0.15 X10*3/uL (0.00-0.03); Imm Gran Pct Auto 2.3 % (0.0-0.4); Lymphocytes Absolute Auto 1.4 X10*3/uL (1.2-4.9); Lymphocytes Percent Auto 22.3 % (20-40); Mean Corpuscular HGB Conc 32.9 g/dl (31.0-36.0); Mean Corpuscular Hemoglobin 31.6 pg (27.0-33.0); Mean Corpuscular Volume 96.1 fL (80.0-98.0); Mean Platelet Volume 10.8 fL (9.4-12.4); Monocytes Absolute Auto 0.5 X10*3/uL (0.1-1.2); Monocytes Percent Auto 8.1 % (2-11); Neutrophils Absolute Auto 3.7 x10*3/uL (2.0-8.3); Neutrophils Percent Auto 57.4 % (45-73); Platelet Count 165 X10*3/uL (160-400); Red Blood Count 4.31 X10*6/uL (4.60-5.80); Red Cell Distribution Width 13.8 % (11.0-16.0); White Blood Count 6.4 X10*3/uL (4.8-10.8)
--- OUTSIDE RECORDS SUMMARY | 2024-11-17 09:10 | XMS_ITS | Clinical Summary ---
Author Organization [employer] Address [address] [facility] [address] [place] [address] Care Team Providers Care Can Line Examiner Name Role Phone Unavailable Primary Care Provider [...]
--- OUTSIDE RECORDS SUMMARY | 2024-11-17 09:10 | XMS_ITS | Encounter Summary ---
Author Organization [employer] Address [address] [facility] [address] [place] [address] Care Team Providers Care Comprehensive Ophthalmologist Name Role Phone Unavailable Primary Care Provider Unavailabl e Encounter Details Date Type Department Care Team (Late st Contact Info) Description 08/28/2023 Abstract [facility] [address] [place] [address] Zack Alejandre, DMD [address] [place] [address] Social History Tobacco Use Types Packs/Day Years Used Date Smoking Tobacco: Unknown Alcohol Use Standard Drinks/Week Comments Defer 0 (1 standard drink = 0.6 oz pur e alcohol) Sex and Gender Information Value Date Recorded Sex Assigned at Male 08/27/2022 8:53 AM EST Legal Sex Male 11:03 AM EST Gender Identity Male 08/27/2022 8:53 AM EST Sexual Orientation Straight 08/27/2022 8: 53 AM EST documented as of this encounter Plan of Treatment Not on file documented as of this encounter Visit Diagnoses Not on filedocumented in this encounter
[2024-11-17 09:18] LABS: Alkaline Phosphatase 70 U/L (39-117); Anion Gap 11 (12-20); Aspartate Amino Transferase 94 U/L (5-37); Bilirubin Total 0.5 mg/dL (0.0-1.0); Blood Urea Nitrogen 9 mg/dL (9-16); Calcium 8.2 mg/dL (8.4-10.2); Carbon Dioxide 25 mmol/L (22-29); Chloride 112 mmol/L (96-108); Estimated Glomerular Filt Rate > 60; Glucose Random 156 mg/dL (60-115); Potassium 3.7 mmol/L (3.3-5.1); Sodium 144 mmol/L (135-145); Total Protein 5.9 g/dL (6.5-8.0)
[2024-11-17 09:37] LABS: Alanine Aminotransferase 82 U/L (0-40); Thyroid Stimulating Hormone 0.55 uIU/mL (0.32-4.0)
[2024-11-17 09:39] LABS: Vitamin B12 582 pg/mL (200-900)
== END 2024-11-17 08:39 | disposition home or self-care (01) ==
LOC: HO.HSH 08:38
PROVIDERS: Visit Provider Nurse Practitioner
DX: I10 Essential (primary) hypertension (principal); E11.9 Type 2 diabetes mellitus without complications; F03.90 Unspecified dementia, unspecified severity, without behavioral disturbance, psychotic disturbance, mood disturbance, and anxiety
CPT/HCPCS: 36415; 80053; 82607; 84443; 85025

== ENCOUNTER 2025-01-10 07:42 | Outpatient (REF) | payer MEDICARE, BC, SELFPAY ==
--- OUTSIDE RECORDS SUMMARY | 2025-01-10 07:45 | XMS_ITS | Encounter Summary ---
Author Organization [employer] Address [address] [facility] [address] [place] [address] Care Team Providers Care High School Science Tutor Name Role Phone Unavailable Primary Care Provider Unavailabl e Encounter Details Date Type Department Care Team (Late st Contact Info) Description 08/28/2023 Abstract [facility] [address] [place] [address] Zack Alejandre, DMD [address] [place] [address] Social History Tobacco Use Types Packs/Day Years [...]
--- OUTSIDE RECORDS SUMMARY | 2025-01-10 07:45 | XMS_ITS | Clinical Summary ---
Author Organization [employer] Address [address] [facility] [address] [place] [address] Care Team Providers Care Glass Installer Name Role Phone Unavailable Primary Care Provider [...]
[2025-01-10 07:50] LABS: MANUAL DIFF FLAG NO
[2025-01-10 07:59] LABS: Basophils Percent Auto 0.2 % (0-2); Eosinophils Percent Auto 0.2 % (0-4); Hematocrit 41.6 % (42.0-52.0); Hemoglobin 14.5 g/dl (14.0-18.0); Imm Gran Abs Auto 0.06 X10*3/uL (0.00-0.03); Imm Gran Pct Auto 0.6 % (0.0-0.4); Lymphocytes Absolute Auto 0.9 X10*3/uL (1.2-4.9); Lymphocytes Percent Auto 9.7 % (20-40); Mean Corpuscular HGB Conc 34.9 g/dl (31.0-36.0); Mean Corpuscular Hemoglobin 31.9 pg (27.0-33.0); Mean Corpuscular Volume 91.4 fL (80.0-98.0); Mean Platelet Volume 10.8 fL (9.4-12.4); Monocytes Absolute Auto 0.8 X10*3/uL (0.1-1.2); Monocytes Percent Auto 7.9 % (2-11); Neutrophils Absolute Auto 7.9 x10*3/uL (2.0-8.3); Neutrophils Percent Auto 81.4 % (45-73); Platelet Count 159 X10*3/uL (160-400); Red Blood Count 4.55 X10*6/uL (4.60-5.80); Red Cell Distribution Width 13.2 % (11.0-16.0); White Blood Count 9.7 X10*3/uL (4.8-10.8)
[2025-01-10 08:17] LABS: Alanine Aminotransferase 6 U/L (0-40); Albumin Level 3.3 g/dL (3.5-5.0); Alkaline Phosphatase 73 U/L (39-117); Anion Gap 12 (12-20); Aspartate Amino Transferase 17 U/L (5-37); Bilirubin Total 0.9 mg/dL (0.0-1.0); Blood Urea Nitrogen 9 mg/dL (9-16); Calcium 8.4 mg/dL (8.4-10.2); Carbon Dioxide 22 mmol/L (22-29); Chloride 106 mmol/L (96-108); Estimated Glomerular Filt Rate > 60; Glucose Random 152 mg/dL (60-115); Potassium 3.4 mmol/L (3.3-5.1); Sodium 137 mmol/L (135-145); Total Protein 6.3 g/dL (6.5-8.0)
== END 2025-01-10 07:43 | disposition home or self-care (01) ==
LOC: HO.HSH3W 07:42
PROVIDERS: Visit Provider Nurse Practitioner
DX: R25.1 Tremor, unspecified (principal)
CPT/HCPCS: 36415; 80053; 85025